=== PATIENT | male | born 1945 | race Hispanic/Latino ===

== ENCOUNTER → 2018-02-07 | Day surgery (SDC) | payer MEDICARE ==
--- NOTE | 2018-02-06 14:08 | Diagnostic Imaging Report ---
PROCEDURE: X-RAY CHEST, TWO VIEWS COMPARISON: None. INDICATIONS: PREOPERATIVE CHEST XRAY FOR PROSTATE SURGERY FINDINGS: LUNGS: No consolidations or edema. PLEURA: No effusions or pneumothorax. HEART \T\ MEDIASTINUM: The heart is within normal size-limits. Tortuous thoracic aorta. BONES \T\ SOFT TISSUES: No acute findings. Degenerative changes of the spine. CONCLUSION: No acute thoracic abnormality. Ced Baker D.O. Dictated by: Ced Baker D.O. on 02/06/2018 at 14:09 Electronically approved by: Ced Baker D.O. on 02/06/2018 at 14:09
[~2018-02-07] MED LIST: ASPIR 8181 MG PO; CITALOPRAM HBR20 MG PO; DEXAMETHASONE SOD PHOS INJ 4 MG/ML VIAL ONE; FENTANYL CITRATE/PF 100MCG/2 ML INJ ONE; IOPAMIDOL 610MG/1ML 300 MG/ML VIAL IV ONE; LEVOFLOXACIN 500MG/D5W 100ML 100 ML IV ONE; LIDOCAINE HCL 2% LOCAL INJ 5 ML SDV VIAL INJ ONE; METFORMIN HCL500 M2 PO; MIDAZOLAM HCL 2 MG/2 ML VIAL ONE; ONDANSETRON HCL INJ 2 MG/ML VIAL ONE; PRAVASTATIN SOD20 MG PO; PROPOFOL IV EMULSION 10 MG/ML 20 ML VIAL ONE; SEVOFLURANE INHAL SOLN 250 ML PEN BTL ONE
--- OUTSIDE RECORDS SUMMARY | 2018-02-07 10:22 | XMS REPORT ---
Author Author [facility] Address Unknown Phone Unavailable Care Team Providers [employer] Name Role Phone SANJAY LUJAN Unavailable Unavailable Problems This patient has no known problems. Allergies, Adverse Reactions, Alerts This patient has no known allergies or adverse reactions. Medications This patient has no known medications. Results Test Description Test Time Test Comments Text Results Atomic Results Result Comments CHEST 2 VIEWS [place] [address] Patient Name: JABIER VALENCIA MR #: [id number] : 1945 Age/Sex: 72/M Req #: [id number] Adm Physician: Ordered by: PRINCE BERUMEN MD Report #: [id number] Location: OR Room/Bed: Procedure: [id number] DX/CHEST 2 VIEWS Exam Date: 02/06/18 Exam Time: 1325 REPORT STATUS: Signed PROCEDURE: X-RAY CHEST, TWO VIEWS COMPARISON: None. INDICATIONS: PREOPERATIVE CHEST XRAY FOR PROSTATE SURGERY FINDINGS: LUNGS: No consolidations or edema. PLEURA: No effusions or pneumothorax. HEART T MEDIASTINUM: The heart is within normal size-limits. Tortuous thoracic aorta. BONES T SOFT TISSUES: No acute findings. Degenerative changes of the spine. CONCLUSION: No acute thoracic abnormality. Alyssa Baker D.O. Dictated by: Alyssa Baker D.O. on 02/06/2018 at 14:09 Electronically approved by: Alyssa Baker D.O. on 02/06/2018 at 14:09 Dictated By: ALYSSA BAKER DO 140 COPY TO: PRINCE BERUMEN MD
--- NOTE | 2018-02-07 12:49 | Operative Report ---
DATE OF PROCEDURE: February 07, 2018 PREOPERATIVE DIAGNOSIS: Total gross painless hematuria. POSTOPERATIVE DIAGNOSIS: Total gross painless hematuria. OPERATION: Cystourethroscopy and bilateral retrograde pyelograms. ANNUAL GIVING MANAGER: Dr. Abdias Coughlin. ANESTHETIC: General. Mr. Manzano is a 72-year-old male who presented with a chief complaint of total gross painless hematuria. CT scan was unremarkable. This patient was placed on the table in the lithotomy position and was prepped and draped in a sterile manner after satisfactory anesthesia. A number 23-Luxembourgish cystoscope was used, and cystourethroscopy was performed and it was noted that the urethra was normal. The prostatic urethra was enlarged, occlusive, and about 3.5 cm long and bilobar. Cystoscopy was then performed using both the right-angle and the Foroblique lens, and it was noted that the bladder mucosa was normal with no evidence of gross tumor, pathology or any papillary lesion. The prostatic surface, however, and the bladder neck showed marked varicosities with large veins over the surface. Both ureteral orifices were seen and were within normal position, configuration, efflux. Right retrograde pyelogram was then performed using a number 8 bulb-tipped ureteral catheter inserted at the right ureteral orifice, and 5 mL of contrast material was injected. The retrograde performed was normal. Left retrograde pyelogram was performed similarly and was normal. The bladder was drained, cystoscope removed, and patient taken to the recovery room in satisfactory condition. Plans for this patient are to be placed on Levaquin 500 mg once a day for 1 week. Ultracet tablet 1 every 6 to 8 hours p.r.n. and was given 20. He is to return to the office in 2 weeks when at that time plans will be made for cysto, TURP laser. Job#: [id number] EV
== END | disposition home or self-care (01) ==
LOC: OR 10:20
PROVIDERS: ATTEND Specialist
DX: R31.0 Gross hematuria (principal); N40.0 Benign prostatic hyperplasia without lower urinary tract symptoms; E11.9 Type 2 diabetes mellitus without complications; Z79.84 Long term (current) use of oral hypoglycemic drugs; E78.5 Hyperlipidemia, unspecified; Z86.73 Personal history of transient ischemic attack (TIA), and cerebral infarction without residual deficits; Z79.82 Long term (current) use of aspirin; Z01.818 Encounter for other preprocedural examination
CPT/HCPCS: 36415; 52005; 71046; 74420; 82948; C1758; J1100; J1956; J2001; J2250; J2405; Q9967

== ENCOUNTER → 2018-03-14 | Day surgery (SDC) | payer MEDICARE ==
[2018-03-13 14:57] LABS: BASOPHILS % 0.2 % (0.0-1.0); EOSINOPHILS # (AUTO) 0.1 (0.0-0.4); EOSINOPHILS % 1.1 % (0.0-6.0); HEMATOCRIT 43.4 % (38.2-49.6); HEMOGLOBIN 14.8 g/dL (14.0-18.0); LYMPHOCYTES % 57.4 % (18.0-39.1); MEAN CORPUSCULAR HEMOGLOBIN 29.2 pg (28-32); MEAN CORPUSCULAR HGB CONC 34.1 g/dL (31-35); MEAN CORPUSCULAR VOLUME 85.6 fL (81-99); MONOCYTES # (AUTO) 0.5 (0.2-0.8); MONOCYTES % 5.6 % (4.4-11.3); NEUTROPHILS # (AUTO) 3.1 (2.1-6.9); NEUTROPHILS % 35.4 % (38.7-80.0); PLATELET COUNT 189 x10e3/uL (140-360); RED BLOOD COUNT 5.07 x10e6/uL (4.3-5.7); RED CELL DISTRIBUTION WIDTH 13.7 % (11.7-14.4)
[2018-03-13 15:09] LABS: ANION GAP 9.2 mmol/L (8-16); BLOOD UREA NITROGEN 22 mg/dL (7-26); BUN/CREATININE RATIO 23 (6-25); CARBON DIOXIDE 26 mmol/L (22-29); CHLORIDE 104 mmol/L (98-107); CREATININE, SERUM 0.95 mg/dL (0.72-1.25); EST GLOMERULAR FILTRATION RATE > 60 ML/MIN (60-); GLUCOSE 199 mg/dL (74-118); POTASSIUM 4.2 mmol/L (3.5-5.1); SODIUM 135 mmol/L (136-145)
[~2018-03-14] MED LIST changes: +HYOSCYAMINE 0.125 MG TAB PO ONE; -IOPAMIDOL 610MG/1ML 300 MG/ML VIAL IV ONE
--- NOTE | 2018-03-14 12:21 | Operative Report ---
DATE OF PROCEDURE: March 14, 2018 PREOPERATIVE DIAGNOSIS 1. Benign prostatic hypertrophy. 2. Prostatic obstruction. POSTOPERATIVE DIAGNOSIS 1. Benign prostatic hypertrophy. 2. Prostatic obstruction. OPERATION 1. Cystourethroscopy. 2. Transurethral resection of the prostate laser XPS. ANESTHETIC: General. Mr. Manzano is a 73-year-old male who presented with a chief complaint of lower urinary tract obstructive symptoms. Rectal exam showed about 50 to 60 grams, smooth, firm and benign. This patient was placed on the table in the lithotomy position and was prepped and draped in a sterile manner after satisfactory anesthesia. A number 23-Somali cystoscope was used, and cystourethroscopy was performed and confirmed the previous cystoscopic findings of an enlarged, occlusive prostate gland. This prostate has had previous TURP in the past. The XPS laser scope generator was then started, starting at 120 gar vaporization level and 40 gar coagulation level. Vaporization of the prostate was then started, starting from 1 to 5 o'clock, starting at the bladder neck to just proximal to the verumontanum and down to the capsular fibers. Hemostasis was obtained all through and was very adequate. Vaporization was then started, starting from 7 to 11 o'clock, starting at the bladder neck to just proximal to the verumontanum and down to the capsular fibers. Again hemostasis was obtained and was very adequate. At the termination of the procedure, it was noted that the bladder mucosa, both ureteral orifices and the external sphincter were intact without laser energy damage. The laser scope generator was shut down. The cystoresectoscope was removed. A number 22-Somali Russell catheter was placed on mild traction. Estimated blood loss was about 5 mL. Plans for this patient are to be discharged home today with the Russell catheter and will return to the office tomorrow, when the Russell catheter will be removed. Job#: [id number] EV
== END | disposition home or self-care (01) ==
LOC: OR 06:47
PROVIDERS: ATTEND Specialist
DX: N40.1 Benign prostatic hyperplasia with lower urinary tract symptoms (principal); N13.8 Other obstructive and reflux uropathy; G47.33 Obstructive sleep apnea (adult) (pediatric); E11.9 Type 2 diabetes mellitus without complications; Z01.810 Encounter for preprocedural cardiovascular examination; Z01.812 Encounter for preprocedural laboratory examination; Z79.82 Long term (current) use of aspirin; Z79.84 Long term (current) use of oral hypoglycemic drugs
CPT/HCPCS: 36415 ×2; 52648; 80048; 82948; 85025; 93005; J1100; J1956; J2001; J2250; J2405